=== PATIENT | male | born 1965 | race Caucasian/White ===

== ENCOUNTER 2017-03-10 17:57 | Inpatient (IN) | payer OTHER ==
[2017-03-10 18:26] LABS: Glucose,Whole Blood 90 mg/dL (75-99)
[2017-03-10 18:40] LABS: Basophils % (A) 1 %; CH 28.9; Eosinophils # (A) 0.1 k/uL (0-0.7); Eosinophils % (A) 2 %; HDW 3.13; HGB 14.7 gm/dL (13.0-17.5); Luc # (Auto) 0.17; Luc % (Auto) 4; Lymphocytes # (A) 1.7 k/uL (1.0-4.8); Lymphocytes % (A) 38 %; MCH 28.7 pg (25.0-35.0); MCHC 33.5 g/dL (31.0-37.0); MCV 85.7 fL (80.0-100.0); Mean Platelet Volume 6.6; Monocytes # (A) 0.5 k/uL (0-1.0); Monocytes % (A) 12 %; Neutrophils % (A) 44 %; RBC 5.13 m/uL (4.30-5.90); RDW 15.5 % (11.5-15.5); WBC 4.5 k/uL (3.8-10.6); WBC (Perox) 4.48
[2017-03-10 18:48] LABS: ALT 29 U/L (21-72); AST 27 U/L (17-59); Alkaline Phosphatase 67 U/L (38-126); Anion Gap 13 mmol/L; Blood Urea Nitrogen 11 mg/dL (9-20); Calcium 9.6 mg/dL (8.4-10.2); Carbon Dioxide 23 mmol/L (22-30); Chloride 107 mmol/L (98-107); Glucose 104 mg/dL (74-99); Magnesium 2.1 mg/dL (1.6-2.3); Non-African American GFR(MDRD) >60 (>60 ml/min/1.73 sqM); Sodium 143 mmol/L (137-145); Total Bilirubin 2.7 mg/dL (0.2-1.3); Total Protein 8.7 g/dL (6.3-8.2)
[2017-03-10 19:03] LABS: Creatine Kinase 209 U/L (55-170); Prothrombin Time 10.1 sec (9.0-12.0)
[2017-03-10] MEDS ORDERED: RX INFO: IV CONTRAST WAS GIVEN 1 EACH MISC MISCELLANE PRN (19:05)
--- NOTE | 2017-03-10 19:09 | CT ---
EXAMINATION TYPE: CT brain wo con DATE OF EXAM: 03/10/2017 6:43 PM COMPARISON: Prior CT brain 30 Mar 2016 HISTORY: Pt states of right side facial numbness. CT DLP: 946.1 mGycm Automated exposure control for dose reduction was used. FINDINGS: There is no acute intracranial hemorrhage, mass effect, or midline shift identified. The ventricles and sulci are within normal limits in size. The globes are intact and the visualized sinuses are rem arkable for air-fluid level in the left maxillary sinus, correlate for sinusitis. Irregularity at the posterior sinus wall on the left is chronic. IMPRESSION: No acute intracranial hemorrhage, mass effect, or midline shift is seen.
[2017-03-10 19:17] LABS: Troponin I <0.012 ng/mL (0.000-0.034)
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
[2017-03-10 19:23] LABS: Partial Thromboplastin Time 21.4 sec (22.0-30.0)
[2017-03-10 19:25] LABS: Creatine Kinase MB 2.9 ng/mL (0.0-2.4)
[2017-03-10] MEDS ORDERED: ASPIRIN 325 MG TAB PO STA (19:44)
[2017-03-10] MEDS ORDERED: predniSONE 20 MG TAB PO STA (19:46)
--- NOTE | 2017-03-10 20:11 | CT ---
CT angiogram of the head and neck HISTORY: Right-sided facial numbness Helical acquisition from the lung apices through the skull following 65 cc intravenous Omnipaque 350. Three-dimensional reconstructions performed on an alternate workstation. Transverse aorta, left and right common carotid, innominate, left and right subclavian arteries are p atent. Vertebral arteries are patent. Internal and external carotid arteries are patent. No significa nt stenosis. Vertebrobasilar system is patent. Air-fluid level noted in the left maxillary sinus. No evident hemorrhage or hydrocephalus. There is no evident aneurysm or vascular malformation. No filling defect or significant stenosis. IMPRESSION: Sinus disease. No significant stenosis of the proximal internal carotid arteries, no evid ent aneurysm.
[2017-03-10] MEDS: valACYclovir 500 MG TAB PO STA ×2 (20:33→20:34)
[2017-03-10] MEDS: ATORVASTATIN 80 MG TAB PO SCH (23:17)
[2017-03-11 00:59] VITALS: RESP 16
--- NOTE | 2017-03-11 09:19 | US ---
EXAMINATION TYPE: US carotid duplex BILAT DATE OF EXAM: 03/11/2017 8:39 AM COMPARISON: NONE CLINICAL HISTORY: Stenosis. rt facial droop EXAM MEASUREMENTS: RIGHT: Peak Systolic Velocity (PSV) cm/sec ----- Right CCA: 170.7 ----- Right ICA: 164.8 ----- Right ECA: 99.2 ICA/CCA ratio: 1.1 RIGHT: End Diastole cm/sec ----- Right CCA: 15.0 ----- Right ICA: 18.9 ----- Right ECA: 12.3 LEFT: Peak Systolic Velocity (PSV) cm/sec ----- Left CCA: 100.9 ----- Left ICA: 75.0 ----- Left ECA: 122.6 ICA/CCA ratio: 0.7 LEFT: End Diastole cm/sec ----- Left CCA: 11.2 ----- Left ICA: 23.5 ----- Left ECA: 11.1 VERTEBRALS (direction of flow): Right Vertebral: Antegrade Left Vertebral: Antegrade Elevated right prox CCA, mid CCA, and ECA. No significant stenosis. Right thicken CCA wall. Plaque seen in right bulb. IMPRESSION: 1. Atherosclerotic changes with no significant hemodynamic stenosis bilaterally.
[2017-03-11] MEDS: predniSONE 20 MG TAB PO SCH (09:58)
[2017-03-11] MEDS: ASPIRIN 325 MG TAB PO SCH (09:58)
[2017-03-11] MEDS: SODIUM CHLORIDE 0.9% 1,000 ML IV SCH ×3 (09:58→17:25)
[2017-03-11] MEDS: valACYclovir 500 MG TAB PO SCH ×2 (09:59→20:04)
--- NOTE | 2017-03-11 11:41 | ECHOF ---
Referral Reason:Thrombus MEASUREMENTS -------- HEIGHT: 182.9 cm WEIGHT: 96.2 kg BP: 133/66 RVIDd: 2.3 cm (< 3.3) IVSd: 1.0 cm (0.6 - 1.1) LVIDd: 5.4 cm (3.9 - 5.3) LVPWd: 1.3 cm (0.6 - 1.1) IVSs: 1.2 cm LVIDs: 3.7 cm LVPWs: 1.4 cm LA Diam: 3.7 cm (2.7 - 3.8) Ao Diam: 2.4 cm (2.0 - 3.7) AV Cusp: 1.6 cm (1.5 - 2.6) LA Diam: 4.1 cm (2.7 - 3.8) MV EXCURSION: 22.213 mm (> 18.000) MV EF SLOPE: 124 mm/s (70 - 150) EPSS: 0.3 cm MV E Uriah: 0.72 m/s MV DecT: 254 ms MV A Uriah: 0.95 m/s MV E/A Ratio: 0.76 RAP: 5.00 mmHg RVSP: 33.05 mmHg FINDINGS -------- Sinus rhythm. This was a technically adequate study. There is borderline concentric left ventricular hypertrophy. Overall left ventricular systolic function is normal with, an EF between 55 - 60 %. The right ventricle is normal in size. The left atrial size is normal. The right atrial size is normal. The aortic valve is trileaflet, and appears structurally normal. No aortic stenosis or regurgitation. Mild mitral annular calcification present. Mild mitral regurgitation is present. Mild tricuspid regurgitation present. There is no evidence of pulmonary hypertension. The right ventricular systolic pressure, as measured by Doppler, is 33.05mmHg. There is no pulmonic regurgitation present. The aortic root size is normal. There is no pericardial effusion. CONCLUSIONS -------- 1. There is borderline concentric left ventricular hypertrophy. 2. Overall left ventricular systolic function is normal with, an EF between 55 - 60 %. 3. Mild mitral annular calcification present. 4. Mild mitral regurgitation is present. 5. Mild tricuspid regurgitation present. 6. There is no evidence of pulmonary hypertension. 7. The right ventricular systolic pressure, as measured by Doppler, is 33.05mmHg. GREEN PIPEFITTER: Julianna Riggins RDCS
--- NOTE | 2017-03-11 14:36 | MR ---
EXAMINATION TYPE: MR brain wo/w con DATE OF EXAM: 03/11/2017 2:22 PM COMPARISON: CT 03/10/2017 HISTORY: 51-year-old male with CVA, right facial droop TECHNIQUE: Multiplanar, multisequence images of the brain and brainstem were acquired before and aft er administration of 19 mL IV MultiHance. Diffusion weighted imaging is performed. FINDINGS: No evidence for acute infarction, hemorrhage, mass, mass effect, midline shift, herniation, effacemen t of basal cisterns, or extra-axial fluid collection. The ventricles and sulci are age-appropriate. Major intracranial flow voids are intact. T2/FLAIR weighted sequences show no significant white matter signal abnormality. A tiny 4 mm focus in the subcortical posterior left frontal white matter, axial image 25 is suspected to represent a vess el. Midline structures demonstrate normal morphology. Minimal 2.7 mm of right-sided cerebellar tonsillar herniation compatible with benign cerebellar tonsillar ectopia. Otherwise, the craniocervical junctio n is normal. Post contrast images demonstrate no evidence of pathologic enhancement. Dural venous sinuses are pat ent. Redemonstrated mild mucosal thickening in the maxillary sinuses with small air-fluid level in the lef t maxillary sinus. The globes are intact. IMPRESSION: 1. No acute intracranial abnormality or enhancing intracranial lesions seen. 2. Correlate for acute left maxillary sinusitis.
[2017-03-11] MEDS: TASIGNA 150 MG PO SCH (17:26)
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
[2017-03-11] MEDS ORDERED: ARTIFICIAL TEARS-HYPROMELLOSE DROPS 15 ML BTL RIGHT EYE PRN (18:45)
--- NOTE | 2017-03-11 18:47 | P.CNNES ---
History of Present Illness Consult date: 03/11/17 History of Present Illness: The patient is a 51-year-old white male who reports that on Saturday morning he woke up with tearing of the right eye and right facial droop. By Saturday at noon it felt as if his right face was more droopy. Urgency room with this symptom. Never had right facial droop in the past. He denied any numbness or weakness in his arms or legs. He denied any visual changes or dizziness or headache. He reports that 5 years ago he passed out and was told he had a mini stroke. He reports however that the workup at that time was negative. He was placed on aspirin which she did stop recently because of a diagnosis of leukemia. Patient reports that he was sleeping next to a fan on Saturday evening. Also reports to having excessive stress recently. He came to the emergency room with this complaint and was admitted to the hospital with possible stroke. He had a carotid ultrasound and echocardiogram which were unremarkable. An MRI which was normal except for some left sinus disease. Denies any hearing loss or change in taste. Denies any eye pain or visual changes. Review of Systems Constitutional: Denies chills, Denies fever Eyes: denies blurred vision, denies pain Ears, nose, mouth and throat: Denies headache, Denies sore throat Cardiovascular: Denies chest pain, Denies shortness of breath Respiratory: Denies cough Gastrointestinal: Denies abdominal pain, Denies diarrhea, Denies nausea, Denies vomiting Musculoskeletal: Denies myalgias Integumentary: Denies pruritus, Denies rash Psychiatric: Denies anxiety, Denies depression Endocrine: Denies fatigue, Denies weight change Past Medical History Past Medical History: CVA/TIA, Hypertension, Pneumonia Additional Past Medical History / Comment(s): GOUT,"HAS A PEICE OF IRON IN ONE OF HIS EYES, NOT SURE BUT THINKS IT MAY BE HIS LT EYE", MURMUR. STATED PT HAD" COW POX", History of Any Multi-Drug Resistant Organisms: None Reported Past Surgical History: Hernia Repair, Orthopedic Surgery Additional Past Surgical History / Comment(s): RT KNEE ARTHROSCOPY AND CLEANED OUT KNEE,, RT SHOULDER HAS PIN IN IT. Past Anesthesia/Blood Transfusion Reactions: No Reported Reaction Past Psychological History: No Psychological Hx Reported Smoking Status: Former smoker Past Alcohol Use History: Rare Additional Past Alcohol Use History / Comment(s): CHEW TOBACCO Past Drug Use History: None Reported - Past Family History Mother Family Medical History: Hypertension Father Additional Family Medical History / Comment(s): DAD IS . HAD HX ULCERS Medications and Allergies Home Medications Medication Instructions Recorded Confirmed Type Ibuprofen/Pseudoephedrine HCl 1 tab PO DAILY PRN 03/10/17 03/10/17 History [Advil Cold & Sinus Caplet] Lidocaine 5% Patch [Lidoderm] 1 patch TOPICAL Q12H PRN 03/10/17 03/10/17 History Nilotinib HCl [Tasigna] 300 mg PO BID 03/10/17 03/10/17 History Allergies Allergy/AdvReac Type Severity Reaction Status Date / Time No Known Allergies Allergy Verified 03/10/17 19:05 Physical Examination - Vital Signs Vital Signs: Vital Signs Temp Pulse Resp BP Pulse Ox 03/11/17 11:05 96.8 F L 61 16 138/65 98 03/11/17 09:25 97.3 F L 70 16 144/69 95 03/11/17 06:00 97.6 F 49 L 16 133/66 99 03/11/17 04:00 97.5 F L 49 L 16 129/60 97 03/11/17 02:00 98.4 F 52 L 16 135/82 97 03/11/17 00:00 98.3 F 57 L 16 143/82 97 03/10/17 23:00 98.2 F 58 L 16 144/83 97 03/10/17 22:00 97.0 F L 58 L 18 146/93 99 03/10/17 21:29 97.3 F L 49 L 18 151/81 100 03/10/17 21:00 97.3 F L 49 L 18 151/81 100 Intake and Output 03/11/17 03/11/17 03/11/17 06:59 14:59 22:59 Intake Total 800 520 Output Total 900 900 Balance -100 -380 Intake: IV 800 Sodium Chloride 0.9% 1, 800 000 ml @ 100 mls/hr IV . Q10H ALLEN Rx#:[id number] Oral 520 Output: Urine 900 900 Other: # Voids 1 2 Weight 96.5 kg - Constitutional General appearance: average body habitus - EENT EENT: PERRL, hearing intact, vision intact - Cardiovascular Cardiovascular: regular rate - Integumentary Integumentary: normal - Neurologic Cranial nerve examination: PERRL, EOMI, VFF, face symmetric (Right lower motor neuron facial paralysis inability to completely close right eyelid), tongue midline Speech examination: intact Sensorimotor examination: other (Reduced light touch on right side of face by 50 %) Detailed motor examination: grossly full strength in all extremities Reflex and gait examination: intact - Psychiatric Psychiatric: mood/affect appropriate Results - Laboratory Findings CBC and BMP: 03/10/17 18:20 03/10/17 18:20 Assessment and Plan (1) Right-sided Neri's palsy Status: Acute Code(s): G51.0 - NERI'S PALSY Plan: The patient has clinical evidence of a right lower motor neuron facial paralysis. Recommend every 4 hours lubrication to right eye with artificial tears. Been patch for right eye during sleep. Recommend OT to evaluate for possible left stimulation for right facial nerve and facial exercises. The patient did have a stroke workup including carotid ultrasound and echocardiogram which were unremarkable. He could be on aspirin periodically as tolerated given his past history of TIA. patient however reports that he has leukemia and was told not to take aspirin. Unclear whether patient would be able to take an antiviral agent at this time given his history of leukocytosis versus leukemia.
[2017-03-11] MEDS: ATORVASTATIN 80 MG TAB PO SCH (20:05)
[2017-03-12] MEDS: TASIGNA 150 MG PO SCH (06:00)
[2017-03-12] MEDS: SODIUM CHLORIDE 0.9% 1,000 ML IV SCH ×2 (06:47→08:51)
[2017-03-12] MEDS: ASPIRIN 325 MG TAB PO SCH (08:52)
[2017-03-12] MEDS: valACYclovir 500 MG TAB PO SCH (08:52)
[2017-03-12] MEDS: predniSONE 20 MG TAB PO SCH (08:52)
[2017-03-12 14:50] VITALS: BP 184/84; PULSE 59; TEMP 97.9
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
== END 2017-03-12 15:55 | disposition home or self-care (01) | DRG 74 ==
LOC: EC 17:57 → 6SEL 19:47 → 5MS5E 03-11 20:44
PROVIDERS: ADMIT Hospitalist; ATTEND Hospitalist
DX: G51.0 Bell's palsy (principal); C95.90 Leukemia, unspecified not having achieved remission; M10.9 Gout, unspecified; I10 Essential (primary) hypertension; F17.220 Nicotine dependence, chewing tobacco, uncomplicated; Z86.73 Personal history of transient ischemic attack (TIA), and cerebral infarction without residual deficits; Z87.828 Personal history of other (healed) physical injury and trauma; Z79.899 Other long term (current) drug therapy
CPT/HCPCS: 36415; 70450; 70496; 70498; 70553; 80053; 82550; 82553; 83735; 84100; 84484; 85025; 85610; 85730; 93005; 93306; 93880; 94760; 99285

== ENCOUNTER → 2019-06-22 | Outpatient (CLI) | payer OTHER ==
--- NOTE | 2019-06-23 09:33 | ECHOF ---
Referral Reason:R01.1 Murmur MEASUREMENTS -------- HEIGHT: 182.9 cm WEIGHT: 102.1 kg BP: RVIDd: 3.5 cm (< 3.3) IVSd: 1.4 cm (0.6 - 1.1) LVIDd: 4.8 cm (3.9 - 5.3) LVPWd: 1.1 cm (0.6 - 1.1) IVSs: 1.9 cm LVIDs: 3.4 cm LVPWs: 1.5 cm LAESV Index (A-L): 29.24 ml/m Ao Diam: 2.7 cm (2.0 - 3.7) AV Cusp: 1.9 cm (1.5 - 2.6) LA Diam: 4.5 cm (2.7 - 3.8) MV EXCURSION: 17.701 mm (> 18.000) MV EF SLOPE: 119 mm/s (70 - 150) EPSS: 1.4 cm MV E Uriah: 0.66 m/s MV DecT: 200 ms MV A Uriah: 0.96 m/s MV E/A Ratio: 0.69 AV maxP.10 mmHg AV meanP.93 mmHg RAP: 5.00 mmHg RVSP: 39.27 mmHg FINDINGS -------- Sinus rhythm. This was a technically adequate study. The left ventricular size is normal. There is mild concentric left ventricular hypertrophy. Overa ll left ventricular systolic function is normal with, an EF between 55 - 60 %. The diastolic fillin g pattern is normal for the age of the patient 8.47. The right ventricle is mildly enlarged. LA is midly dilated 29-33ml/m2. The right atrial size is normal. Interatrial and interventricular septum intact. The aortic valve is trileaflet and appears structurally normal. There is no evidence of aortic regu rgitation. There is no evidence of aortic stenosis. Peak/mean gradient across the Aortic Valve is 18.10mmHg / 8.93mmHg. There is trace mitral regurgitation. Mild tricuspid regurgitation present. There is mild pulmonary hypertension. The right ventricular systolic pressure, as measured by Doppler, is 39.27mmHg. There is no pulmonic regurgitation present. The aortic root size is normal. IVC Not well visulized. There is no pericardial effusion. CONCLUSIONS -------- 1. Sinus rhythm. 2. This was a technically adequate study. 3. The left ventricular size is normal. 4. There is mild concentric left ventricular hypertrophy. 5. Overall left ventricular systolic function is normal with, an EF between 55 - 60 %. 6. The diastolic filling pattern is normal for the age of the patient 8.47 7. The right ventricle is mildly enlarged. 8. LA is midly dilated 29-33ml/m2. 9. The right atrial size is normal. 10. Interatrial and interventricular septum intact. 11. The aortic valve is trileaflet and appears structurally normal. 12. There is no evidence of aortic regurgitation. 13. There is no evidence of aortic stenosis. 14. Peak/mean gradient across the Aortic Valve is 18.10mmHg / 8.93mmHg. 15. There is trace mitral regurgitation. 16. Mild tricuspid regurgitation present. 17. There is mild pulmonary hypertension. 18. The right ventricular systolic pressure, as measured by Doppler, is 39.27mmHg. 19. There is no pulmonic regurgitation present. 20. The aortic root size is normal. 21. IVC Not well visulized. 22. There is no pericardial effusion. STRATEGIC DEBRIEFING OFFICER: Beverley Dutton RD
== END | disposition home or self-care (01) ==
LOC: RADECHMAIN 15:14
PROVIDERS: ATTEND Internal Medicine
DX: I07.1 Rheumatic tricuspid insufficiency (principal); I27.20 Pulmonary hypertension, unspecified
CPT/HCPCS: 93306

== ENCOUNTER 2020-03-11 08:18 | Inpatient (IN) | payer MEDICARE, OTHER ==
--- NOTE | 2020-03-11 08:50 | ED ---
General Adult HPI - General Chief complaint: Weakness Stated complaint: feet swelling Time Seen by Provider: 03/11/20 08:28 Source: patient, RN notes reviewed, old records reviewed Mode of arrival: wheelchair Limitations: physical limitation - History of Present Illness Initial comments: 54-year-old male patient with past history of prior CVA, HTN. gout present ED for chief complaint of bilateral lower extremity pain and swelling. Reports has been ongoing for approximately 2 weeks. Patient reports he has been sedentary since the start of quarantine. Patient does also report that he has a history of CML and completed treatments approximately 6 months ago. Denies any chest pain or shortness of breath. Patient reports he has not taken his blood p ressure medication the last few days. Systemic: Pt denies fatigue, fever/chills, rash. Pt denies weakness, night sweats, weight loss. Neuro: Pt denies headache, visual disturbances, syncope or pre-syncope. HEENT: Pt denies ocular discharge or irritation, otalgia, rhinorrhea, pharyngitis or notable lymphadenopathy. Cardiopulmonary: Pt denies chest pain, SOB, heart palpitations, dyspnea on exertion. Abdominal/GI: Pt denies abdominal pain, n/v/d. : Pt denies dysuria, burning w/ urination, frequency/urgency. Denies new onset urinary or bowel incontinence. MSK: Pt denies myalgia, loss of strength or function in extremities. Neuro: Pt denies new onset weakness, paresthesias. - Related Data Home Medications Medication Instructions Recorded Confirmed Acetaminophen [Tylenol] 650 mg PO Q8H PRN 03/11/20 03/11/20 Atorvastatin Calcium [Lipitor] 80 mg PO DAILY 03/11/20 03/11/20 Cephalexin [Keflex] 500 mg PO Q8H 03/11/20 03/11/20 Losartan Potassium [Cozaar] 50 mg PO DAILY 03/11/20 03/11/20 Naproxen Sodium [Aleve] 440 mg PO BID PRN 03/11/20 03/11/20 Allergies Allergy/AdvReac Type Severity Reaction Status Date / Time cefazolin [From Ancef] Allergy Unknown Verified 03/11/20 10:12 sulfamethoxazole Allergy Rash/Hives Verified 03/11/20 10:12 [From Bactrim] trimethoprim [From Bactrim] Allergy Rash/Hives Verified 03/11/20 10:12 Review of Systems ROS Statement: Those systems with pertinent positive or pertinent negative responses have been documented in the HPI. ROS Other: All systems not noted in ROS Statement are negative. Past Medical History Past Medical History: CVA/TIA, Hypertension, Pneumonia Additional Past Medical History / Comment(s): GOUT,"HAS A PEICE OF IRON IN ONE OF HIS EYES, NOT SURE BUT THINKS IT MAY BE HIS LT EYE", MURMUR. STATED PT HAD" COW POX", Leukemia History of Any Multi-Drug Resistant Organisms: None Reported Past Surgical History: Hernia Repair, Orthopedic Surgery Additional Past Surgical History / Comment(s): RT KNEE ARTHROSCOPY AND CLEANED OUT KNEE,, RT SHOULDER HAS PIN IN IT. Past Anesthesia/Blood Transfusion Reactions: No Reported Reaction Past Psychological History: No Psychological Hx Reported Smoking Status: Former smoker Past Alcohol Use History: Rare Past Drug Use History: None Reported - Past Family History Mother Family Medical History: Hypertension Father Additional Family Medical History / Comment(s): DAD IS . HAD HX ULCERS General Exam - General Exam Comments Initial Comments: Constitutional: NAD, AOX3, Pt has pleasant affect. HEENT: NC/AT, trachea midline, neck supple, no lymphadenopathy. Posterior pharynx non erythematous, without exudates. External ears appear normal, without discharge. Mucous membranes moist. Eyes PERRLA, EOM intact. There is no scleral icterus. No pallor noted. Cardiopulmonary: RRR, no murmurs, rubs or gallops, no JVD noted. Lungs CTAB in anterior and posterior crane. Abdominal exam: Abdomen soft and non-distended. Abdomen non-tender to palpation in all 4 quadrants. Bowel sounds active in LLQ. No hepatosplenomegaly. No ecchymosis Neuro: CN II-XII intact. No nuchal rigidity. No raccon eyes, no juarez sign, no hemotympanum. No cervical spinal tenderness. MSK: Posterior peripheral edema noted lower extremities bilaterally. No skin changes. No posterior calf tenderness bilaterally, homans sign negative bilaterally. Mild amount of posterior knee tenderness bilaterally. Worse on left side. Mild suprapatellar effusion noted on left knee. No external skin changes. Mild tenderness. Posterior tibialis and radial pulse +2 bilaterally. Sensation intact in upper and lower extremities. Full activeROM in upper extremities, 5/5 stregnth. ROM of LLE slightly limited secondary to knee pain. Full active ROM of RLE. Limitations: physical limitation Course Vital Signs 03/11/20 03/11/20 03/11/20 08:19 09:05 09:23 Temperature 98.4 F Pulse Rate 82 78 67 Respiratory 18 18 18 Rate Blood Pressure 234/113 212/111 203/99 O2 Sat by Pulse 100 98 Oximetry 03/11/20 03/11/20 03/11/20 09:46 10:05 10:16 Temperature Pulse Rate 64 62 70 Respiratory 18 18 18 Rate Blood Pressure 203/106 198/98 200/103 O2 Sat by Pulse 97 97 Oximetry 03/11/20 03/11/20 10:33 10:51 Temperature Pulse Rate 67 69 Respiratory 18 18 Rate Blood Pressure 197/102 197/102 O2 Sat by Pulse 98 97 Oximetry Medical Decision Making - Medical Decision Making 54-year-old male patient with past history of prior CVA, HTN. gout present ED for chief complaint of bilateral lower extremity pain and swelling. Reports has been ongoing for approximately 2 weeks. Patient reports he has been sedentary since the start of quarantine. Patient does also report that he has a history of CML and completed treatments approximately 6 months ago. Denies any chest pain or shortness of breath. Patient reports he has not taken his blood pressure medication the last few days. Patient vital signs displayed hypertension. Initial blood pressure 234/113. Patient was administered analgesia for bilateral leg pain as well as antihypertensive. At time of admission patient's blood pressure is 200/103. Physical exam displayed posterior peripheral edema bilaterally. Neurovascularly intact. Posterior knees are mildly tender to palpation bilaterally. Worse on left side. Laboratory investigations are unimpressive. EKG nonischemic. CXR displayed no acute cardiopulmonary process. Venous doppler displayed bakers cyst left sided. Patient will be admitted for hypertensive urgency, possible right-sided heart failure. Case discussed with Dr. Welch. - Lab Data Result diagrams: 03/11/20 08:59 03/11/20 08:59 Lab Results 03/11/20 03/11/20 03/11/20 Range/Units 08:59 08:59 08:59 WBC 10.5 (3.8-10.6) k/uL RBC 4.92 (4.30-5.90) m/uL Hgb 13.8 (13.0-17.5) gm/dL Hct 42.7 (39.0-53.0) % MCV 86.9 (80.0-100.0) fL MCH 28.1 (25.0-35.0) pg MCHC 32.3 (31.0-37.0) g/dL RDW 14.3 (11.5-15.5) % Plt Count 336 (150-450) k/uL Neutrophils % 78 % Lymphocytes % 14 % Monocytes % 5 % Eosinophils % 1 % Basophils % 1 % Neutrophils # 8.2 H (1.3-7.7) k/uL Lymphocytes # 1.5 (1.0-4.8) k/uL Monocytes # 0.6 (0-1.0) k/uL Eosinophils # 0.1 (0-0.7) k/uL Basophils # 0.1 (0-0.2) k/uL Sodium 139 (137-145) mmol/L Potassium 4.8 (3.5-5.1) mmol/L Chloride 101 (98-107) mmol/L Carbon Dioxide 25 (22-30) mmol/L Anion Gap 13 mmol/L BUN 16 (9-20) mg/dL Creatinine 0.96 (0.66-1.25) mg/dL Est GFR (CKD-EPI)AfAm >90 (>60 ml/min/1.73 sqM) Est GFR (CKD-EPI)NonAf >90 (>60 ml/min/1.73 sqM) Glucose 166 H (74-99) mg/dL Calcium 9.8 (8.4-10.2) mg/dL Phosphorus 3.8 (2.5-4.5) mg/dL Magnesium 2.0 (1.6-2.3) mg/dL Total Bilirubin 1.3 (0.2-1.3) mg/dL AST 22 (17-59) U/L ALT 11 (4-49) U/L Alkaline Phosphatase 95 (38-126) U/L Troponin I <0.012 (0.000-0.034) ng/mL NT-Pro-B Natriuret Pep pg/mL Total Protein 8.3 H (6.3-8.2) g/dL Albumin 4.4 (3.5-5.0) g/dL 03/11/20 Range/Units 08:59 WBC (3.8-10.6) k/uL RBC (4.30-5.90) m/uL Hgb (13.0-17.5) gm/dL Hct (39.0-53.0) % MCV (80.0-100.0) fL MCH (25.0-35.0) pg MCHC (31.0-37.0) g/dL RDW (11.5-15.5) % Plt Count (150-450) k/uL Neutrophils % % Lymphocytes % % Monocytes % % Eosinophils % % Basophils % % Neutrophils # (1.3-7.7) k/uL Lymphocytes # (1.0-4.8) k/uL Monocytes # (0-1.0) k/uL Eosinophils # (0-0.7) k/uL Basophils # (0-0.2) k/uL Sodium (137-145) mmol/L Potassium (3.5-5.1) mmol/L Chloride (98-107) mmol/L Carbon Dioxide (22-30) mmol/L Anion Gap mmol/L BUN (9-20) mg/dL Creatinine (0.66-1.25) mg/dL Est GFR (CKD-EPI)AfAm (>60 ml/min/1.73 sqM) Est GFR (CKD-EPI)NonAf (>60 ml/min/1.73 sqM) Glucose (74-99) mg/dL Calcium (8.4-10.2) mg/dL Phosphorus (2.5-4.5) mg/dL Magnesium (1.6-2.3) mg/dL Total Bilirubin (0.2-1.3) mg/dL AST (17-59) U/L ALT (4-49) U/L Alkaline Phosphatase (38-126) U/L Troponin I (0.000-0.034) ng/mL NT-Pro-B Natriuret Pep 200 pg/mL Total Protein (6.3-8.2) g/dL Albumin (3.5-5.0) g/dL - EKG Data -: EKG Interpreted by Me (and Dr. Welch ) EKG Comments: Ventricular rate 74, ND interval 150, QRS ED, QT/QTC 398/441. Normal sinus rhythm, normal EKG, no concern for acute ischemia. Disposition Clinical Impression: Leg edema, Hypertensive urgency, Knee pain Disposition: ADMITTED IP TO THIS HOSP Condition: Fair Is patient prescribed a controlled substance at d/c from ED?: No
[2020-03-11] MEDS ORDERED: LABETALOL 5 MG/ML VIAL MDV IVP STA (09:04)
[2020-03-11] MEDS ORDERED: MORPHINE SULFATE 4 MG/ML SYRINGE IV STA (09:05)
[2020-03-11] MEDS ORDERED: FUROSEMIDE 10 MG/ML 4 ML VIAL IV STA ×2 (09:16→09:52)
--- NOTE | 2020-03-11 09:22 | XR ---
EXAMINATION TYPE: XR chest 2V DATE OF EXAM: 03/11/2020 COMPARISON: 03/30/2016 HISTORY: 54-year-old male rule out fluid overload, bilateral feet swelling TECHNIQUE: PA and lateral views FINDINGS: The cardiomediastinal silhouette, aorta, and pulmonary vasculature are within normal limits. Lungs an d pleural spaces are clear. IMPRESSION: No acute cardiopulmonary process.
[2020-03-11 09:27] LABS: Basophils # (A) 0.1 k/uL (0-0.2); Basophils % (A) 1 %; Eosinophils # (A) 0.1 k/uL (0-0.7); Eosinophils % (A) 1 %; HCT 42.7 % (39.0-53.0); HGB 13.8 gm/dL (13.0-17.5); Lymphocytes # (A) 1.5 k/uL (1.0-4.8); Lymphocytes % (A) 14 %; MCH 28.1 pg (25.0-35.0); MCHC 32.3 g/dL (31.0-37.0); MCV 86.9 fL (80.0-100.0); Mean Platelet Volume 7.2; Monocytes # (A) 0.6 k/uL (0-1.0); Monocytes % (A) 5 %; Neutrophils # (A) 8.2 k/uL (1.3-7.7); Neutrophils % (A) 78 %; Platelet Count 336 k/uL (150-450); RBC 4.92 m/uL (4.30-5.90); RDW 14.3 % (11.5-15.5); WBC 10.5 k/uL (3.8-10.6)
[2020-03-11 09:49] LABS: ALT 11 U/L (4-49); AST 22 U/L (17-59); African American GFR (CKD) >90 (>60 ml/min/1.73 sqM); Albumin 4.4 g/dL (3.5-5.0); Alkaline Phosphatase 95 U/L (38-126); Anion Gap 13 mmol/L; Blood Urea Nitrogen 16 mg/dL (9-20); Calcium 9.8 mg/dL (8.4-10.2); Carbon Dioxide 25 mmol/L (22-30); Chloride 101 mmol/L (98-107); Glucose 166 mg/dL (74-99); Non-African American GFR(CKD) >90 (>60 ml/min/1.73 sqM); Phosphorus 3.8 mg/dL (2.5-4.5); Potassium 4.8 mmol/L (3.5-5.1); Sodium 139 mmol/L (137-145); Total Bilirubin 1.3 mg/dL (0.2-1.3); Total Protein 8.3 g/dL (6.3-8.2)
--- NOTE | 2020-03-11 09:55 | US ---
EXAMINATION TYPE: US venous doppler duplex LE DATE OF EXAM: 03/11/2020 9:49 AM COMPARISON: NONE CLINICAL HISTORY: 54-year-old male swelling pain . Bilateral leg edema and pain, worse on the left SIDE PERFORMED: bilateral TECHNIQUE: The lower extremity deep venous system is examined utilizing real time linear array sonog chet with graded compression, doppler sonography and color-flow sonography. FINDINGS: VESSELS IMAGED: External Iliac Vein (EIV) Common Femoral Vein Deep Femoral Vein Greater Saphenous Vein * Femoral Vein Popliteal Vein Small Saphenous Vein * Proximal Calf Veins (* superficial vessels) Right Leg: No evidence of DVT Left Leg: No evidence of DVT. Some poorly defined fluid areas in the left popliteal fossa measuring up to 3.3 cm long. IMPRESSION: 1. No evidence for DVT within the bilateral lower extremities imaged from the groin to the upper calv es. 2. Suspect small Powers cyst on the left measuring 3.3 cm.
[2020-03-11] MEDS ORDERED: hydrALAZINE HCL 20 MG/ML 1 ML VIAL IVP PRN (10:25)
[2020-03-11] MEDS ORDERED: NALOXONE 0.4 MG/ML 1 ML VIAL IV PRN (10:30)
[2020-03-11] MEDS: LOSARTAN 50 MG TAB PO SCH (10:48)
--- NOTE | 2020-03-11 11:17 | XR ---
EXAMINATION TYPE: XR knee 4V LT DATE OF EXAM: 03/11/2020 COMPARISON: NONE HISTORY: 54-year-old male with pain and swelling TECHNIQUE: 4 views FINDINGS: Anterior soft tissue swelling. Large knee joint effusion. No acute fracture, subluxation, dislocation seen. Patella appears situated along the trochlear groove. IMPRESSION: No acute osseous abnormality seen. However, there is an underlying large knee joint effusion. Recomme nd MRI to assess for internal derangement especially in the setting of injury.
[2020-03-11] MEDS: MORPHINE SULFATE 4 MG/ML SYRINGE IV PRN ×2 (13:04→22:20)
[2020-03-11] MEDS ORDERED: hydrALAZINE HCL 10 MG TAB PO STA (14:13)
--- NOTE | 2020-03-11 15:24 | P.CNOR ---
History of Present Illness - [facility] Consult date: 03/11/20 Consult reason: joint pain History of present illness: The patient is seen and examined today at bedside. He is a pleasant 54-year-old abid who has been having knee pain over the past 3 weeks. He says that he was injured 4 years ago and has had some pain in his back since that time he also extends having pain down his legs particularly when he is standing still. He developed swelling in his legs typically. He says that she weeks ago he noticed some increased swelling in his legs which has not gone away. He says that over the past 2 weeks she has been having pain in his left knee as well. He says he has had some pains as needed on and off in the past but this has been bothering over the past 2 weeks. He denies any specific injury or trauma. He says he does have history of some gout in his toe in the past. He does have a history of leukemia as well. Denies any fevers or chills. Denies any new injury to his knee. Denies any instability or giving way or locking. Review of Systems denies fevers chills or night sweats. He has been having swelling in his lower extremities for the past few weeks. He's been having some increased pain in his left knee. Denies any specific trauma or injury. Denies any prior problems in his left knee specifically. Past Medical History Past Medical History: CVA/TIA, Hypertension, Pneumonia Additional Past Medical History / Comment(s): GOUT,"HAS A PEICE OF IRON IN ONE OF HIS EYES, NOT SURE BUT THINKS IT MAY BE HIS LT EYE", MURMUR. STATED PT HAD" COW POX", Leukemia History of Any Multi-Drug Resistant Organisms: None Reported Past Surgical History: Hernia Repair, Orthopedic Surgery Additional Past Surgical History / Comment(s): RT KNEE ARTHROSCOPY AND CLEANED OUT KNEE,, RT SHOULDER HAS PIN IN IT. Past Anesthesia/Blood Transfusion Reactions: No Reported Reaction Past Psychological History: No Psychological Hx Reported Smoking Status: Former smoker Past Alcohol Use History: Rare Additional Past Alcohol Use History / Comment(s): CHEW TOBACCO Past Drug Use History: None Reported - Past Family History Mother Family Medical History: Hypertension Father Additional Family Medical History / Comment(s): DAD IS . HAD HX ULCERS Medications and Allergies Home Medications Medication Instructions Recorded Confirmed Type Acetaminophen [Tylenol] 650 mg PO Q8H PRN 03/11/20 03/11/20 History Atorvastatin Calcium [Lipitor] 80 mg PO DAILY 03/11/20 03/11/20 History Cephalexin [Keflex] 500 mg PO Q8H 03/11/20 03/11/20 History Cyclobenzaprine [Flexeril] 10 mg PO TID PRN #60 tab 03/11/20 Rx Losartan Potassium [Cozaar] 50 mg PO DAILY 03/11/20 03/11/20 History Naproxen Sodium [Aleve] 440 mg PO BID PRN 03/11/20 03/11/20 History Allergies Allergy/AdvReac Type Severity Reaction Status Date / Time cefazolin [From Ancef] Allergy Unknown Verified 03/11/20 10:12 sulfamethoxazole Allergy Rash/Hives Verified 03/11/20 10:12 [From Bactrim] trimethoprim [From Bactrim] Allergy Rash/Hives Verified 03/11/20 10:12 Physical Examination Osteopathic Statement: *. No significant issues noted on an osteopathic structural exam other than those noted in the History and Physical/Consult. - Knee left Appearance: other (at his left knee there is some diffuse swelling without specific effusion. There is some tenderness at the medial lateral joint line at his left knee. His thigh and calf soft nontender. There is no erythema. It is difficult to fully ascertain if there is significant effusion that knee. There is no obvious instability. He has some pain with flexion beyond 60. He has a slight extension lag about 10. He has full active dorsal flexion plantar flexion his ankle foot and toes. Sensory is intact. His hip is nontender to palpation range motion. His right lower extremity has some diffuse swelling as well. There is no point tenderness. Abdomen is soft nontender. Chest has good excursion deep inspiration and expiration) Results - Labs Labs: Abnormal Lab Results - Last 24 Hours (Table) 03/11/20 03/11/20 Range/Units 08:59 08:59 Neutrophils # 8.2 H (1.3-7.7) k/uL Glucose 166 H (74-99) mg/dL Total Protein 8.3 H (6.3-8.2) g/dL H & H 03/11/20 Range/Units 08:59 Hgb 13.8 (13.0-17.5) gm/dL Hct 42.7 (39.0-53.0) % Result Diagrams: 03/11/20 08:59 03/11/20 08:59 - Diagnostic results Knee x-ray: report reviewed, image reviewed (the left knee x-ray shows some soft tissue swelling. There is some is mild arthritic change from lateral compartment without any evidence of fracture.) Assessment and Plan Assessment: left knee strain Bilateral lower extremity chronic swelling History of leukemia Left knee swelling Plan: left knee strain Bilateral lower extremity chronic swelling History of leukemia Left knee swelling the patient has some diffuse strain in his left knee. He says that he may have been doing some limping recently and putting some extra weight and favoring his leg due to his swelling. He does not have any specific trauma however. With his history of gout I was uncertain as to whether or not he had significant effusion. At bedside I tried to aspirate his left knee but I was unable to get any fluid collection. There is no evidence of any pus. I was not able to get any fluid for sending. I think that he has some knee strain and diffuse swelling without specific internal derangement or injury at his knee. It is okay for him to weight-bear as tolerated on his bilateral lower extremities. I do not think that he needs emergent advanced imaging such as MRI but this may be helpful slightly down the line for further evaluation if his symptoms do not progress. He is asking for a muscle relaxer and I think that would be appropriate and I will or that for him. I think he should continue with his regular pain medication. he can be discharged from an orthopedic standpoint to follow up with us in approximately 1-2 weeks for recheck evaluation. I discussed this with him answers questions easily agreeable. Time with Patient: Greater than 30
--- NOTE | 2020-03-11 23:08 | P.HPIM ---
History of Present Illness H&P Date: 03/11/20 Chief Complaint: Bilateral leg swelling Patient is a 54-year-old male with a known history of CVA/TIA, hypertension, leukemia, history of back injury and chronic bilateral lower action to swelling came to ER with complaints of worsening swelling for the past 2 weeks. Patient says that he has been at home since the start of stay at home ordered due to coronary is pandemic. Patient says that he does have history of leukemia/CML and completed treatment approximately 6 months ago. Otherwise denied any complaints of chest pain or shortness of breath. No cough or sputum production. No fever no chills. No nausea vomiting or abdominal pain or diarrhea. Denied any dysuria or hematuria. Patient was found have elevated blood pressures with SBP greater than 220 mmHg on admission. Patient is also complaining of left knee pain and swelling on and off. X-ray of the knee showed no osseous abnormality seen. However there is an underlying large knee joint effusion. Recommend MRI to assess for internal derangement especially in the setting of injury. Chest x-ray showed no acute cardiopulmonary process. EKG showed normal sinus rhythm. BNP 200, albumin 4.4 Bilateral lower action to duplex scan is negative for DVT bilaterally. All other laboratory data within normal limits. Liver enzymes are not elevated. Review of Systems Constitutional: Patient denies any fever or chills . No generalized weakness or weight loss. Abdomen: Patient denied nausea vomiting and diarrhea and abdominal pain. Cardiovascular: Patient denies any chest pain or short of breath no palpitations. Bilateral leg swelling. Respiratory: patient denied any cough is from production. No shortness of breath Neurologic: Patient denied any numbness or tingling headache. Musculoskeletal: Patient denies any complaints of joint swelling or deformity. Skin: Negative Psychiatric: Negative Endocrine: No heat or cold intolerance. No recent weight gain. Genitourinary: No dysuria or hematuria. All other 14 point ROS negative except the above Past Medical History Past Medical History: CVA/TIA, Hypertension, Pneumonia Additional Past Medical History / Comment(s): GOUT,"HAS A PEICE OF IRON IN ONE OF HIS EYES, NOT SURE BUT THINKS IT MAY BE HIS LT EYE", MURMUR. STATED PT HAD" COW POX", Leukemia History of Any Multi-Drug Resistant Organisms: None Reported Past Surgical History: Hernia Repair, Orthopedic Surgery Additional Past Surgical History / Comment(s): RT KNEE ARTHROSCOPY AND CLEANED OUT KNEE,, RT SHOULDER HAS PIN IN IT. Past Anesthesia/Blood Transfusion Reactions: No Reported Reaction Past Psychological History: No Psychological Hx Reported Smoking Status: Former smoker Past Alcohol Use History: Rare Additional Past Alcohol Use History / Comment(s): CHEW TOBACCO Past Drug Use History: None Reported - Past Family History Mother Family Medical History: Hypertension Father Additional Family Medical History / Comment(s): DAD IS . HAD HX ULCERS Medications and Allergies Home Medications Medication Instructions Recorded Confirmed Type Acetaminophen [Tylenol] 650 mg PO Q8H PRN 03/11/20 03/11/20 History Atorvastatin Calcium [Lipitor] 80 mg PO DAILY 03/11/20 03/11/20 History Cephalexin [Keflex] 500 mg PO Q8H 03/11/20 03/11/20 History Cyclobenzaprine [Flexeril] 10 mg PO TID PRN #60 tab 03/11/20 Rx Losartan Potassium [Cozaar] 50 mg PO DAILY 03/11/20 03/11/20 History Naproxen Sodium [Aleve] 440 mg PO BID PRN 03/11/20 03/11/20 History Allergies Allergy/AdvReac Type Severity Reaction Status Date / Time cefazolin [From Ancef] Allergy Unknown Verified 03/11/20 10:12 sulfamethoxazole Allergy Rash/Hives Verified 03/11/20 10:12 [From Bactrim] trimethoprim [From Bactrim] Allergy Rash/Hives Verified 03/11/20 10:12 Physical Exam Vitals: Vital Signs Temp Pulse Pulse Resp BP BP Pulse Ox 03/11/20 12:19 98.2 F 68 15 192/82 98 03/11/20 11:41 68 18 183/102 99 03/11/20 10:51 69 18 197/102 97 03/11/20 10:33 67 18 197/102 98 03/11/20 10:16 70 18 200/103 03/11/20 10:05 62 18 198/98 97 03/11/20 09:46 64 18 203/106 97 03/11/20 09:23 67 18 203/99 03/11/20 09:05 78 18 212/111 98 03/11/20 08:19 98.4 F 82 18 234/113 100 Intake and Output 03/10/20 03/11/20 03/11/20 22:59 06:59 14:59 Other: Weight 104.326 kg PHYSICAL EXAMINATION: Patient is lying in the bed comfortably, no acute distress, awake alert and oriented.. HEENT: Normocephalic. Neck is supple. Pupils reactive. Nostrils clear. Oral cavity is moist. Ears reveal no drainage. Neck reveals no JVD, carotid bruits, or thyromegaly. CHEST EXAMINATION: Trachea is central. Symmetrical expansion. Lung crane clear to auscultation and percussion. CARDIAC: Normal S1, S2 with no gallops. No murmurs ABDOMEN: Soft. Bowel sounds normal. No organomegaly. No abdominal bruits. Extremities: Bilateral lower extremity 2+ edema. No clubbing or cyanosis Neurologically awake, alert, oriented x3 with well-coordinated movements. No focal deficits noted Skin: No rash or skin lesions. Psychiatric: Coperative. Nonsuicidal Musculoskeletal: No joint swelling or deformity. Normal range of motion. Results CBC & Chem 7: 03/11/20 08:59 03/11/20 08:59 Labs: Abnormal Lab Results - Last 24 Hours (Table) 03/11/20 03/11/20 Range/Units 08:59 08:59 Neutrophils # 8.2 H (1.3-7.7) k/uL Glucose 166 H (74-99) mg/dL Total Protein 8.3 H (6.3-8.2) g/dL Thrombosis Risk Factor Assmnt - DVT/VTE Prophylaxis DVT/VTE Prophylaxis: Pharmacologic Prophylaxis ordered - Choose All That Apply Any of the Below Risk Factors Present?: Yes Each Factor Represents 1 point: Age 41-60 years, Obesity (BMI >25) Other Risk Factors: No Other congenital or acquired thrombophilia - If yes, enter type in comment: No Thrombosis Risk Factor Assessment Total Risk Factor Score: 2 Thrombosis Risk Factor Assessment Level: Low Risk Assessment and Plan Assessment: Hypertensive urgency Bilateral lower extremity swelling. Duplex scan is negative. Albumin 4.4, Follow-up 2-D echocardiogram. Left knee pain and swelling on and off. Status post injury. X-ray showed no osseous abnormality. 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 History of CVA/TIA Hypertension History of leukemia status post chemotherapy completed 6 months ago Previous history of smoking DVT prophylaxis with heparin subcu Plan: Patient will be continued on IV Lasix 40 mg daily along with losartan. Monitor electrolytes. Orthopedic surgery was consulted due to left knee pain. X-ray showed no osseous abnormality. No significant effusion noted on physical exam. We will check d-dimer level and also 2-D echocardiogram. I's are not elevated. continue to monitor closely and further recommendations based on the clinical course. Time with Patient: Greater than 30
[2020-03-12] MEDS: HEPARIN SODIUM,PORCINE 5,000 UNIT/ML 1 ML VIAL SQ SCH ×3 (00:13→16:25)
[2020-03-12 07:57] LABS: Basophils # (A) 0.1 k/uL (0-0.2); Basophils % (A) 1 %; Eosinophils # (A) 0.1 k/uL (0-0.7); Eosinophils % (A) 1 %; HGB 13.4 gm/dL (13.0-17.5); Lymphocytes # (A) 2.7 k/uL (1.0-4.8); Lymphocytes % (A) 25 %; MCV 87.4 fL (80.0-100.0); Monocytes # (A) 0.7 k/uL (0-1.0); Monocytes % (A) 7 %; Neutrophils # (A) 7.2 k/uL (1.3-7.7); Neutrophils % (A) 66 %; Platelet Count 374 k/uL (150-450); RBC 4.81 m/uL (4.30-5.90); RDW 14.4 % (11.5-15.5)
[2020-03-12 08:05] LABS: Calcium 9.9 mg/dL (8.4-10.2); Potassium 4.7 mmol/L (3.5-5.1)
[2020-03-12] MEDS: LOSARTAN 50 MG TAB PO SCH ×2 (08:05→20:48)
[2020-03-12] MEDS: CYCLOBENZAPRINE 10 MG TAB PO PRN ×2 (08:13→20:47)
--- NOTE | 2020-03-12 08:41 | P.PN ---
Progress Note - Text Progress Note Date: 03/12/20 Patient is seen and examined today at bedside. The patient has some pain around his left knee. He feels like the swelling slightly diminished. Pain is somewhat global around the medial and lateral joint line and posteriorly. He was able to stand up but is very dependent on a walker for standing and for trying to utilize. With a severe limp at the left leg. He is not having specific numbness or tingling. There is no pain in his hip. Physical Exam Afebrile with stable vital signs. his pressure is slightly improved today Abdomen is soft nontender. Chest has good excursion deep and space expiration Extremities have not had neurologic change. there is some diffuse tenderness over his medial lateral compartment and posteriorly. There is no obvious effusion. There is no erythema. calves and thighs were soft nontender without evidence of DVT.there is diffuse swelling his bilateral ankles. Toes Assessment/Plan patient's blood pressure seems to be improving with Lasix. He said that he did have some increased weight and this is likely coming off the fluid. We will continue to increase the patient's mobilization with therapy. It is okay for him to weight-bear as tolerated. He may have some internal derangement at his left knee which may need advanced imaging with MRI after the hospital. We will continue pain control with oral or IV medications. is okay for patient to be discharged from orthopedic standpoint when he stable medicine. We can follow him up on an outpatient in 1-2 weeks.
[2020-03-12] MEDS ORDERED: FUROSEMIDE 10 MG/ML 4 ML VIAL IV SCH (09:00)
[2020-03-12 10:39] LABS: Cholesterol 156 mg/dL (<200); HDL Cholesterol 37 mg/dL (40-60); LDL Cholesterol,Calculated 101 mg/dL (0-99); Triglycerides 90 mg/dL (<150)
--- NOTE | 2020-03-12 15:35 | P.PN ---
Subjective This is Dr. BAILEY dictating a consult note on this patient Impression: Uncontrolled hypertension [place] effusion left knee with pain and tenderness especially in walking History of hypertension History of dyslipidemia History of CML Plan: Losartan 50 g twice daily Blood pressure control Patient may go home from a cardiac standpoint and I will see him as an outpatient 2-D echo was ordered History of present illness: Patient presented with bilateral lower extremity pain and swelling. Rice spoke to him he is pointing to his left knee which is clearly swollen and there is an effusion in this knee. There is no calf swelling no tenderness. At home he takes morphine opiates for this He has a history of CML He has a history of dyslipidemia and hypertension and is on atorvastatin and losartan Review of systems No fever chills or rigors No cough phlegm or expectoration No nausea vomiting or diarrhea No hematuria dysuria No muscular skeletal complaints No neurologic complaints No skin lesions On examination Vitals 167/81 mmHg pulse rate in the 60s to 90s afebrile Breath sounds are clear no rhonchi or crackles Normal heart sounds normal S1 normal S2 No murmurs or gallop or rub Abdomen soft nontender Review of data White count 11,000, hemoglobin 13.4, platelet count 374,000 D-dimer 0.6 Sodium 138, potassium 4.7, BUN 18 and creatinine 1.12 HDL 37 LDL 101 total cholesterol 156 and triglycerides 90 Objective - Vital Signs Vital signs: Vital Signs Temp 98.3 F 03/12/20 07:00 Pulse 63 03/12/20 07:00 Resp 18 03/12/20 07:00 BP 175/81 03/12/20 07:00 Pulse Ox 95 03/12/20 07:00 Intake & Output 03/11/20 03/12/20 03/12/20 18:59 06:59 18:59 Intake Total 400 Output Total 600 1800 Balance -600 400 -1800 Weight 104.326 kg Intake: Oral 400 Output: Urine 600 1800 Other: # Voids 1 1 - Labs CBC & Chem 7: 03/12/20 07:36 03/12/20 07:36 Labs: Abnormal Lab Results - Last 24 Hours (Table) 03/12/20 03/12/20 03/12/20 Range/Units 07:36 07:36 07:36 WBC 11.0 H (3.8-10.6) k/uL D-Dimer 0.61 H (<0.60) mg/L FEU Carbon Dioxide 34 H (22-30) mmol/L Glucose 127 H (74-99) mg/dL LDL Cholesterol, Calc (0-99) mg/dL HDL Cholesterol (40-60) mg/dL 03/12/20 Range/Units 07:36 WBC (3.8-10.6) k/uL D-Dimer (<0.60) mg/L FEU Carbon Dioxide (22-30) mmol/L Glucose (74-99) mg/dL LDL Cholesterol, Calc 101 H (0-99) mg/dL HDL Cholesterol 37 L (40-60) mg/dL
[2020-03-13] MEDS: HEPARIN SODIUM,PORCINE 5,000 UNIT/ML 1 ML VIAL SQ SCH ×4 (00:34→23:11)
[2020-03-13] MEDS: CYCLOBENZAPRINE 10 MG TAB PO PRN (08:13)
[2020-03-13] MEDS: LOSARTAN 50 MG TAB PO SCH ×2 (08:13→20:54)
[2020-03-13] MEDS: methylPREDNISolone 4 MG TAB TAPER PO SCH (09:37)
--- NOTE | 2020-03-13 12:40 | ECHOF ---
Referral Reason:Bilateral leg swelling MEASUREMENTS -------- HEIGHT: 175.3 cm WEIGHT: 104.3 kg BP: 167/81 IVSd: 1.4 cm (0.6 - 1.1) LVIDd: 5.3 cm (3.9 - 5.3) LVPWd: 1.5 cm (0.6 - 1.1) IVSs: 1.7 cm LVIDs: 3.3 cm LVPWs: 2.1 cm LA Diam: 3.1 cm (2.7 - 3.8) RVIDd: 2.8 cm (< 3.3) LAESV Index (A-L): 34.27 ml/m Ao Diam: 2.8 cm (2.0 - 3.7) AV Cusp: 2.0 cm (1.5 - 2.6) EPSS: 0.8 cm MV E Uriah: 0.70 m/s MV DecT: 239 ms MV A Uriah: 0.99 m/s MV E/A Ratio: 0.71 RAP: 5.00 mmHg RVSP: 23.14 mmHg MV EF SLOPE: 57.33 mm/s (70 - 150) MV EXCURSION: 20.95 mm (> 18.000) FINDINGS -------- Sinus rhythm. This was a technically adequate study. The left ventricular size is normal. There is moderate concentric left ventricular hypertrophy. O verall left ventricular systolic function is normal with, an EF between 55 - 60 %. The right ventricle is normal in size. The left atrial size is normal. The right atrium is normal in size. Interatrial and interventricular septum intact. The aortic valve is trileaflet and appears structurally normal. Mild mitral annular calcification present. Mild tricuspid regurgitation present. Right ventricular systolic pressure is normal at < 35 mmHg. Trace/mild (physiologic) pulmonic regurgitation. The aortic root size is normal. Normal inferior vena cava with normal inspiratory collapse consistent with estimated right atrial pre ssure of 5 mmHg. There is no pericardial effusion. CONCLUSIONS -------- 1. Sinus rhythm. 2. This was a technically adequate study. 3. The left ventricular size is normal. 4. There is moderate concentric left ventricular hypertrophy. 5. Overall left ventricular systolic function is normal with, an EF between 55 - 60 %. 6. The right ventricle is normal in size. 7. The left atrial size is normal. 8. The right atrium is normal in size. 9. Interatrial and interventricular septum intact. 10. The aortic valve is trileaflet and appears structurally normal. 11. Mild mitral annular calcification present. 12. Mild tricuspid regurgitation present. 13. Right ventricular systolic pressure is normal at < 35 mmHg. 14. Trace/mild (physiologic) pulmonic regurgitation. 15. The aortic root size is normal. 16. Normal inferior vena cava with normal inspiratory collapse consistent with estimated right atrial pressure of 5 mmHg. 17. There is no pericardial effusion. RECYCLING ATTENDANT: Kori Moya RDCS
--- NOTE | 2020-03-13 13:30 | P.PN ---
Subjective Progress Note Date: 03/13/20 Principal diagnosis: Left knee pain Patient is pleasant 54 year old man seen at bedside this morning where we are following him for severe left knee pain. It has not improved much over the past fgew days. He continues to have swelling at the knee and pain more anteriorly. He has pain with ROM and ambulating. He denies new complaints today including numbness, tingling, calf pain, fever, chills, chest pain, SOB or weakness Objective - Vital Signs Vital signs: Vital Signs Temp 98.4 F 03/13/20 07:00 Pulse 79 03/13/20 07:00 Resp 17 03/13/20 07:00 BP 165/85 03/13/20 07:00 Pulse Ox 96 03/13/20 07:00 Intake & Output 03/12/20 03/13/20 03/13/20 18:59 06:59 18:59 Intake Total 200 Output Total 1800 Balance -1800 200 Intake: Oral 200 Output: Urine 1800 Other: # Voids 1 1 - Exam Left knee shows no erythema or deformity on inspection. There is swelling at the suprapatellar area. There is tenderness at the patella tendon and tibia tubercle more so than joint line. It is not hot to touch. He lacks 15 degrees of extension and can flex to 80 degrees both limited to pain. The knee appears to be ligamentously stable. calf is SNT. pulses in feet are 2+ and less than 2 sec cap refill present - Constitutional General appearance: Present: no acute distress - Labs CBC & Chem 7: 03/12/20 07:36 03/12/20 07:36 Assessment and Plan (1) Knee pain Narrative/Plan: We will have him try utilizing a [place] Compressive hose to the left leg today along with elevating, rest and using ice pack 3x/day. We Will also add oral corticosteroids. We Will continue to monitor and make further recommendations as appropriate. Current Visit: Yes Status: Acute Priority: Medium Code(s): M25.569 - PAIN IN UNSPECIFIED KNEE SNOMED Code(s): 22288959 Time with Patient: Less than 30
[2020-03-13 16:52] VITALS: RESP 18
--- NOTE | 2020-03-13 17:59 | P.PN ---
Subjective Patient is being treated for the effusion left knee. He is an ice pack on and is awaiting a steroid shot His blood pressure still elevated History had increased losartan 50 mg twice daily He denies any chest discomfort dizziness lightheadedness or palpitations Blood pressure is still 170/84 mmHg Afebrile Positive the 70s Heart sounds Vu normal Extremities warm edema Abdomen soft 2-D echo shows moderate left ventricular hypertrophy with preserved LV systolic function Suggest Continue losartan 100 mg by mouth daily Further maximization of antihypertensive therapy as an outpatient Objective - Vital Signs Vital signs: Vital Signs Temp 98.4 F 03/13/20 15:00 Pulse 80 03/13/20 15:00 Resp 18 03/13/20 15:00 BP 167/86 03/13/20 15:00 Pulse Ox 94 L 03/13/20 15:00 Intake & Output 03/12/20 03/13/20 03/13/20 18:59 06:59 18:59 Intake Total 400 Output Total 1800 Balance -1800 400 Intake: Oral 400 Output: Urine 1800 Other: # Voids 1 1 3 - Labs CBC & Chem 7: 03/12/20 07:36 03/12/20 07:36
--- NOTE | 2020-03-14 01:26 | P.PN ---
Subjective Progress Note Date: 03/12/20 Principal diagnosis: Uncontrolled hypertension Left knee swelling and pain Patient is a 54-year-old male with a known history of CVA/TIA, hypertension, leukemia, history of back injury and chronic bilateral lower action to swelling came to ER with complaints of worsening swelling for the past 2 weeks. Patient says that he has been at home since the start of stay at home ordered due to coronary is pandemic. Patient says that he does have history of leukemia/CML and completed treatment approximately 6 months ago. Otherwise denied any complaints of chest pain or shortness of breath. No cough or sputum production. No fever no chills. No nausea vomiting or abdominal pain or diarrhea. Denied any dysuria or hematuria. Patient was found have elevated blood pressures with SBP greater than 220 mmHg on admission. Patient is also complaining of left knee pain and swelling on and off. X-ray of the knee showed no osseous abnormality seen. However there is an underlying large knee joint effusion. Recommend MRI to assess for internal derangement especially in the setting of injury. Chest x-ray showed no acute cardiopulmonary process. EKG showed normal sinus rhythm. BNP 200, albumin 4.4 Bilateral lower action to duplex scan is negative for DVT bilaterally. All other laboratory data within normal limits. Liver enzymes are not elevated. 03/12/2020 Patient denied any complaints of chest pain or shortness of breath today. Leg swelling is improving. Blood pressure is still elevated.. Patient was started on losartan 50 mg twice daily and Lasix has been discontinued. Orthopedic surgery is following due to left knee pain. Continue on pain management and conservative therapy. Cardiology is following. 2-D echocardiogram to be done. Current medications reviewed. Objective - Vital Signs Vital signs: Vital Signs Temp 98.3 F 03/12/20 19:00 Pulse 76 03/12/20 19:00 Resp 17 03/12/20 15:00 BP 170/84 03/12/20 19:00 Pulse Ox 95 03/12/20 19:00 Intake & Output 03/12/20 03/12/20 03/13/20 06:59 18:59 06:59 Intake Total 400 Output Total 1800 Balance 400 -1800 Intake: Oral 400 Output: Urine 1800 Other: # Voids 1 1 - Exam PHYSICAL EXAMINATION: Patient is lying in the bed comfortably, no acute distress, awake alert and oriented.. HEENT: Normocephalic. Neck is supple. Pupils reactive. Nostrils clear. Oral cavity is moist. Ears reveal no drainage. Neck reveals no JVD, carotid bruits, or thyromegaly. CHEST EXAMINATION: Trachea is central. Symmetrical expansion. Lung crane clear to auscultation and percussion. CARDIAC: Normal S1, S2 with no gallops. No murmurs ABDOMEN: Soft. Bowel sounds normal. No organomegaly. No abdominal bruits. Extremities: 2+ bilateral edema. No clubbing or cyanosis Neurologically awake, alert, oriented x3 with well-coordinated movements. No focal deficits noted Skin: No rash or skin lesions. Psychiatric: Coperative. Nonsuicidal Musculoskeletal: No joint swelling or deformity. Normal range of motion. Left knee swelling. No redness. - Labs CBC & Chem 7: 03/12/20 07:36 03/12/20 07:36 Labs: Abnormal Lab Results - Last 24 Hours (Table) 03/12/20 03/12/20 03/12/20 Range/Units 07:36 07:36 07:36 WBC 11.0 H (3.8-10.6) k/uL D-Dimer 0.61 H (<0.60) mg/L FEU Carbon Dioxide 34 H (22-30) mmol/L Glucose 127 H (74-99) mg/dL LDL Cholesterol, Calc (0-99) mg/dL HDL Cholesterol (40-60) mg/dL 03/12/20 Range/Units 07:36 WBC (3.8-10.6) k/uL D-Dimer (<0.60) mg/L FEU Carbon Dioxide (22-30) mmol/L Glucose (74-99) mg/dL LDL Cholesterol, Calc 101 H (0-99) mg/dL HDL Cholesterol 37 L (40-60) mg/dL Assessment and Plan Assessment: Hypertensive urgency Bilateral lower extremity swelling. Duplex scan is negative. Albumin 4.4, Follow-up 2-D echocardiogram. Improving now. Left knee pain and swelling on and off. Status post injury. X-ray showed no osseous abnormality. 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 History of CVA/TIA Hypertension History of leukemia status post chemotherapy completed 6 months ago Previous history of smoking DVT prophylaxis with heparin subcu Plan: Patient was continued on IV Lasix 40 mg daily. Increase losartan dose to 50 mg twice a day.. Monitor electrolytes. Orthopedic surgery was consulted due to left knee pain. X-ray showed no osseous abnormality. No significant effusion noted on physical exam. We will check d-dimer level and also 2-D echocardiogram. BNP is not elevated. continue to monitor closely and further recommendations based on the clinical course. Time with Patient: Greater than 30
--- NOTE | 2020-03-14 01:30 | P.PN ---
Subjective Progress Note Date: 03/13/20 Principal diagnosis: Uncontrolled hypertension Left knee swelling and pain Patient is a 54-year-old male with a known history of CVA/TIA, hypertension, leukemia, history of back injury and chronic bilateral lower action to swelling came to ER with complaints of worsening swelling for the past 2 weeks. Patient says that he has been at home since the start of stay at home ordered due to coronary is pandemic. Patient says that he does have history of leukemia/CML and completed treatment approximately 6 months ago. Otherwise denied any complaints of chest pain or shortness of breath. No cough or sputum production. No fever no chills. No nausea vomiting or abdominal pain or diarrhea. Denied any dysuria or hematuria. Patient was found have elevated blood pressures with SBP greater than 220 mmHg on admission. Patient is also complaining of left knee pain and swelling on and off. X-ray of the knee showed no osseous abnormality seen. However there is an underlying large knee joint effusion. Recommend MRI to assess for internal derangement especially in the setting of injury. Chest x-ray showed no acute cardiopulmonary process. EKG showed normal sinus rhythm. BNP 200, albumin 4.4 Bilateral lower action to duplex scan is negative for DVT bilaterally. All other laboratory data within normal limits. Liver enzymes are not elevated. 03/12/2020 Patient denied any complaints of chest pain or shortness of breath today. Leg swelling is improving. Blood pressure is still elevated.. Patient was started on losartan 50 mg twice daily and Lasix has been discontinued. Orthopedic surgery is following due to left knee pain. Continue on pain management and conservative therapy. Cardiology is following. 2-D echocardiogram to be done. 03/13/2020 Patient's bilateral leg swelling is much improved today. Otherwise patient still having left knee pain and tenderness and decreased range of motion. Feels slightly warm as well. Patient was seen by orthopedic surgery and recommended to start on steroids. Possible gout is also consideration. Uric acid level w ill be ordered. Otherwise blood pressure is improving with SBP and 160s this morning. Losartan changed to 100 mg daily. 2-D echocardiogram report is pending. Anticipate discharge in the next 1-2 days with clinical improvement. Current medications reviewed. Objective - Vital Signs Vital signs: Vital Signs Temp 98.4 F 03/13/20 15:00 Pulse 80 03/13/20 15:00 Resp 18 03/13/20 19:18 BP 167/86 03/13/20 15:00 Pulse Ox 94 L 03/13/20 15:00 Intake & Output 03/13/20 03/13/20 03/14/20 06:59 18:59 06:59 Intake Total 600 Balance 600 Intake: Oral 600 Other: Voiding Method Toilet Urinal # Voids 1 3 - Exam PHYSICAL EXAMINATION: Patient is lying in the bed comfortably, no acute distress, awake alert and oriented.. HEENT: Normocephalic. Neck is supple. Pupils reactive. Nostrils clear. Oral cavity is moist. Ears reveal no drainage. Neck reveals no JVD, carotid bruits, or thyromegaly. CHEST EXAMINATION: Trachea is central. Symmetrical expansion. Lung crane clear to auscultation and percussion. CARDIAC: Normal S1, S2 with no gallops. No murmurs ABDOMEN: Soft. Bowel sounds normal. No organomegaly. No abdominal bruits. Extremities: 2+ bilateral edema. No clubbing or cyanosis Neurologically awake, alert, oriented x3 with well-coordinated movements. No focal deficits noted Skin: No rash or skin lesions. Psychiatric: Coperative. Nonsuicidal Musculoskeletal: No joint swelling or deformity. Left knee swelling with decre ased range of motion and mild redness. - Labs CBC & Chem 7: 03/12/20 07:36 03/12/20 07:36 Assessment and Plan Assessment: Hypertensive urgency Bilateral lower extremity swelling. Duplex scan is negative. Albumin 4.4, Follow-up 2-D echocardiogram. Improving now. Left knee pain and swelling on and off. Status post injury. X-ray showed no osseous abnormality. Possible acute gouty arthritis. 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 History of CVA/TIA Hypertension History of leukemia status post chemotherapy completed 6 months ago Previous history of smoking DVT prophylaxis with heparin subcu Plan: Patient was continued on IV Lasix 40 mg daily. Increase losartan dose to 50 mg twice a day--1 mg daily... Monitor electrolytes. Orthopedic surgery was consulted due to left knee pain. X-ray showed no osseous abnormality. No significant effusion noted on physical exam. D-dimer level is 0.61. Ordered 2- D echocardiogram. BNP is not elevated. continue to monitor closely and further recommendations based on the clinical course. Time with Patient: Greater than 30
[2020-03-14 06:57] LABS: Basophils % (A) 0 %; Eosinophils # (A) 0.1 k/uL (0-0.7); Eosinophils % (A) 1 %; HCT 43.6 % (39.0-53.0); HGB 14.1 gm/dL (13.0-17.5); Lymphocytes # (A) 1.3 k/uL (1.0-4.8); Lymphocytes % (A) 8 %; MCHC 32.4 g/dL (31.0-37.0); MCV 86.3 fL (80.0-100.0); Mean Platelet Volume 7.2; Monocytes % (A) 5 %; Neutrophils # (A) 15.3 k/uL (1.3-7.7); Neutrophils % (A) 86 %; Platelet Count 466 k/uL (150-450); RBC 5.05 m/uL (4.30-5.90); RDW 14.3 % (11.5-15.5); WBC 17.8 k/uL (3.8-10.6)
[2020-03-14 07:17] LABS: Calcium 9.9 mg/dL (8.4-10.2); Potassium 4.4 mmol/L (3.5-5.1); Uric Acid 9.4 mg/dL (3.5-8.5)
[2020-03-14] MEDS: HEPARIN SODIUM,PORCINE 5,000 UNIT/ML 1 ML VIAL SQ SCH ×2 (08:00→15:35)
[2020-03-14] MEDS: methylPREDNISolone 4 MG TAB TAPER PO SCH (08:00)
[2020-03-14] MEDS: LOSARTAN 50 MG TAB PO SCH (08:00)
[2020-03-14 16:11] VITALS: BP 146/68; PULSE 68; TEMP 98.3
--- NOTE | 2020-03-14 17:14 | P.PN ---
Subjective Progress Note Date: 03/14/20 This patient is a 54-year-old male is being followed for left knee pain. The patient was initially evaluated by Dr. Duenas on 03/11/20, when an aspiration of the left knee was performed and aspiration did not yield any fluid. Oral steroids were added yesterday. The patient states he is experiencing significant improvement in his left knee pain since yesterday. He states he believes the swelling has decreased and he is experiencing a "100% improvement ", of his pain. He has not attempted ambulating today. The patient states he does have a history of gout. He last experienced an acute gout flare in his right first MTP joint about 10 years ago. He denies fevers, chills, nausea, vomiting. He has n o new complaints today. He is overall very happy with his progress. Vital signs stable. Objective - Vital Signs Vital signs: Vital Signs Temp 98.3 F 03/14/20 15:00 Pulse 68 03/14/20 15:00 Resp 18 03/14/20 15:00 BP 146/68 03/14/20 15:00 Pulse Ox 95 03/14/20 15:00 Intake & Output 03/13/20 03/14/20 03/14/20 18:59 06:59 18:59 Intake Total 600 450 Output Total 900 Balance 600 -450 Intake: Oral 600 450 Output: Urine 900 Other: Voiding Method Toilet Toilet Urinal Urinal # Voids 3 0 3 - Exam On examination, the patient is lying in bed in no apparent distress. He is alert and oriented 3. On inspection of the left lower extremity, there is MAX hose in place. Inspection of the left knee, the patient has a moderate joint effusion. There is no overlying erythema, warmth. There is mild pain on palpation of the tibial tubercle and patellar tendon. No significant pain on palpation of the quad tendon, patella, medial or lateral joint lines. There is no pain with passive range of motion of the knee. Motor and sensory function appear to be intact of the left lower extremity. Patient has good strength range of motion of the left ankle. A full extremity is warm and well-perfused. - Labs CBC & Chem 7: 03/14/20 06:35 03/14/20 06:35 Labs: Abnormal Lab Results - Last 24 Hours (Table) 03/14/20 03/14/20 Range/Units 06:35 06:35 WBC 17.8 H (3.8-10.6) k/uL Plt Count 466 H (150-450) k/uL Neutrophils # 15.3 H (1.3-7.7) k/uL BUN 36 H (9-20) mg/dL Creatinine 1.27 H (0.66-1.25) mg/dL Glucose 127 H (74-99) mg/dL Uric Acid 9.4 H (3.5-8.5) mg/dL Assessment and Plan Assessment: Left knee pain, improving. Plan: - Clinical findings were discussed with the patient. The patient has experienced significant improvement in symptoms since initiation of oral steroids. Patient may benefit oral steroids on discharge. - Patient may continue ROM of the left knee as tolerated. He may weight bear as tolerated on the left knee. - He is ok for discharge from an orthopedic standpoint. He may follow-up in the office with Dr. Duenas in 1 week if needed.
--- NOTE | 2020-03-15 08:47 | P.DS ---
Providers Date of admission: 03/11/20 10:26 Expected date of discharge: 03/14/20 Attending physician: Izabel Kauffman Consults: 03/11/20 10:30 Consult Physician Stat Consulting Provider: Norris Weaver Consult Reason/Comments: hypertensive urgency, edema Do you want consulting provider notified?: Yes 03/11/20 11:25 Consult Physician Stat Consulting Provider: Elmira Duenas Consult Reason/Comments: left knee pain, prepatellar effusion, bakers cyst Do you want consulting provider notified?: Yes Primary care physician: Genesis Hastings Hospital Course: Final diagnosis Hypertensive urgency Bilateral lower extremity swelling, improved Left knee pain and swelling on and off. Status post injury. X-ray showed no osseous abnormality. Possible acute gouty arthritis. 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 History of CVA/TIA Hypertension History of leukemia status post chemotherapy completed 6 months ago Previous history of smoking DVT prophylaxis Discharge disposition Patient is being discharged in a stable condition with guarded prognosis to home and will follow-up with Dr. Hastings in the outpatient setting upon discharge. Patient will need repeat labs in a few days to monitor creatinine. Total time taken is 35 minutes. History of present illness This is a 54-year-old male who was recently admitted with worsening bilateral lower extremity swelling and pain and was being closely monitored. Patient was also found to be hypertensive with a blood pressure systolic greater than 220 on admission. Patient was seen and evaluated by cardiology and changes were made to losartan. Patient will be taking 50 mg twice daily upon discharge. Patient also had some left knee swelling and discomfort status post injury and was seen and evaluated by orthopedic surgery recommending conservative management and no surgical intervention at this time. Patient was started on a steroid and had significant improvement in swelling and increase in mobility. Patient instructed to follow-up with orthopedic surgery as needed in the outpatient setting. Patient also instructed to follow-up with primary care provider in a few days for close monitoring of creatinine is slightly elevated at 1.27. Patient verbalized understanding and a prescription was provided for repeat labs. Patient also underwent a 2-D echo during hospitalization showing overall left ventricular systolic function is normal with an EF between 55 and 60%. Currently no reports of chest pain, shortness of breath, or palpitations. Patient is afebrile. No reports of nausea or vomiting and patient is tolerating diet. Patient will continue with Medrol Dosepak and elevate and ice the left knee while at rest. Patient will be discharged today. On exam vital signs are stable. Temp is 98.3F, 68 is the pulse, respirations are 18, blood pressure is 146/68, oxygen saturation is 95% on room air. Cardio S1, S2 are present. Respiratory shows clear to auscultation. Abdomen is soft and nontender. Nervous system shows no focal deficits. Please refer to medication reconciliation sheet for a list of medications. Patient Condition at Discharge: Stable Plan - Discharge Summary New Discharge Prescriptions: New Cyclobenzaprine [Flexeril] 10 mg PO TID PRN #60 tab PRN Reason: Spasms Losartan [Cozaar] 50 mg PO BID 30 Days #60 tab methylPREDNISolone Dose Pack [Medrol Dose Pack] 4 mg PO DIRECTED #21 package Continue Acetaminophen [Tylenol] 650 mg PO Q8H PRN PRN Reason: Pain Discontinued Naproxen Sodium [Aleve] 440 mg PO BID PRN PRN Reason: Pain Losartan Potassium [Cozaar] 50 mg PO DAILY Cephalexin [Keflex] 500 mg PO Q8H Atorvastatin Calcium [Lipitor] 80 mg PO DAILY Discharge Medication List Acetaminophen [Tylenol] 650 mg PO Q8H PRN 03/11/20 [History] Cyclobenzaprine [Flexeril] 10 mg PO TID PRN #60 tab 03/11/20 [Rx] Losartan [Cozaar] 50 mg PO BID 30 Days #60 tab 03/14/20 [Rx] methylPREDNISolone Dose Pack [Medrol Dose Pack] 4 mg PO DIRECTED #21 package 03/14/20 [Rx] Follow up Appointment(s)/Referral(s): Elmira Duenas DO [Doctor of Osteopathic Medicine] - 1 Week (Please call to schedule appointment on Saturday) Genesis Hastings MD [Primary Care Provider] - 1-2 days (office not answering. Please call to make appointment) Ambulatory/Diagnostic Orders: Basic Metabolic Panel [LAB.AMB] Time Frame: 2 Days, Location: None Selected Patient Instructions/Handouts: Hypertensive Crisis (DC) Activity/Diet/Wound Care/Special Instructions: Activity Limited until follow-up Continue current diet Follow-up with primary care provider Follow-up with pain management Repeat labs in 2-3 days to monitor kidney functions Monitor blood pressure and keep a diary of blood pressure readings for primary care follow-up Discharge Disposition: HOME SELF-CARE
--- NOTE | 2020-03-16 09:08 | CDI ---
Documentation Clarification Form Date: 03/16/2020 08:54:16 AM From: Xena Cali RN, CCDS Admit Date: 03/11/2020 10:26:00 AM Patient Name: Aryan Mustafa Visit Number: [id number] Discharge Date: 03/14/2020 05:46:00 PM ATTENTION: The Clinical Documentation Specialists (CDI) and [facility] Coding Staff appreciate your assistance in clarifying documentation. Please respond to the clarification below the line at the bottom and electronically sign. The CDI & [facility] Coding staff will review the response and follow-up if needed. Please note: Queries are made part of the Legal Health Record. If you have any questions, please contact the author of this message via ITS. Dr. Antonio Cohen Coronavirus Screening was preformed in upon admission. Results of Coronavirus testing must be documented in Medical record. Patient history/risk factors: CVA, pneumonia, HTN, former smoker Clinical Indicators: Patient presented to with c/o increased lower extremity swelling x 2 weeks with left knee pain and swelling. 03/11 CXR:"The cardiomediastinal silhouette, aorta, and pulmonary vasculature are within normal limits. Lungs and pleural spaces are clear. 03/11- 03/14 Labs: WBC 10.5/11/17.8, Neutrophils 8.2/7.2/15.3 03/11 Coronavirus (PCR) Negative 03/11 819 Vital Signs: Temp 98.4, Hr 82, RR 18, B/P 234/113, spo2 100% ra Treatment: Medrol dose pack In order to capture the severity of condition, please clarify if the above treatment/clinical indicators signify: COVID-19 ruled out Other, please specify (Last Form Revision: January 2020) COVID-19 ruled out MTDD
== END 2020-03-14 17:46 | disposition home or self-care (01) | DRG 305 ==
LOC: EC 08:18 → 4SSUR 10:26
PROVIDERS: ADMIT Internal Medicine; ATTEND Internal Medicine
DX: I16.0 Hypertensive urgency (principal); I11.9 Hypertensive heart disease without heart failure; R60.0 Localized edema; M10.9 Gout, unspecified; E78.5 Hyperlipidemia, unspecified; M71.22 Synovial cyst of popliteal space [Baker], left knee; S86.912A Strain of unspecified muscle(s) and tendon(s) at lower leg level, left leg, initial encounter; R01.1 Cardiac murmur, unspecified; M25.462 Effusion, left knee; M54.9 Dorsalgia, unspecified; Z11.59 Encounter for screening for other viral diseases; Z79.899 Other long term (current) drug therapy; Z92.21 Personal history of antineoplastic chemotherapy; Z87.891 Personal history of nicotine dependence; Z86.73 Personal history of transient ischemic attack (TIA), and cerebral infarction without residual deficits; Z85.6 Personal history of leukemia; Z88.1 Allergy status to other antibiotic agents; Z88.2 Allergy status to sulfonamides; Z87.01 Personal history of pneumonia (recurrent); Z82.49 Family history of ischemic heart disease and other diseases of the circulatory system
CPT/HCPCS: 36415; 71046; 80048; 80053; 80061; 83735; 83880; 84100; 84484; 84550; 85025; 85379; 87635; 93005; 93306; 93970; 96374; 96375; 99285

== ENCOUNTER 2021-10-31 13:14 | Emergency (ER) | payer OTHER, MEDICARE ==
[2021-10-31] MEDS ORDERED: ONDANSETRON 4 MG/2 ML VIAL IVP STA (15:28)
[2021-10-31] MEDS ORDERED: SODIUM CHLORIDE 0.9% 1,000 ML IV STA ×2 (15:28)
[2021-10-31] MEDS ORDERED: DEXAMETHASONE SOD PHOSPHATE 10 MG/ML 1 ML VIAL IV STA (15:30)
[2021-10-31 15:58] LABS: Basophils % (A) 0 %; Eosinophils % (A) 0 %; HCT 42.8 % (39.0-53.0); HGB 15.3 gm/dL (13.0-17.5); Lymphocytes # (A) 1.1 k/uL (1.0-4.8); Lymphocytes % (A) 21 %; MCH 30.6 pg (25.0-35.0); MCHC 35.7 g/dL (31.0-37.0); MCV 85.7 fL (80.0-100.0); Mean Platelet Volume 8.7; Monocytes # (A) 0.2 k/uL (0-1.0); Monocytes % (A) 4 %; Neutrophils # (A) 3.8 k/uL (1.3-7.7); Neutrophils % (A) 73 %; Platelet Count 174 k/uL (150-450); RBC 4.99 m/uL (4.30-5.90); RDW 14.1 % (11.5-15.5); WBC 5.2 k/uL (3.8-10.6)
--- NOTE | 2021-10-31 16:05 | XR ---
EXAMINATION TYPE: XR chest 1V portable DATE OF EXAM: 10/31/2021 COMPARISON: 03/11/2020 HISTORY: Cough TECHNIQUE: Single frontal view of the chest is obtained. FINDINGS: Bilateral areas of consolidation are seen. Heart size normal. No pleural effusion or pneum othorax. Mild hyperinflation correlate for COPD. IMPRESSION: Bilateral pneumonia.
[2021-10-31 16:07] LABS: Albumin 4.2 g/dL (3.5-5.0); Calcium 8.6 mg/dL (8.4-10.2); Phosphorus 3.5 mg/dL (2.5-4.5); Potassium 3.3 mmol/L (3.5-5.1); Total Protein 7.4 g/dL (6.3-8.2)
[2021-10-31] MEDS ORDERED: POTASSIUM CHLORIDE ER 20 MEQ TAB.ER PO STA (16:25)
--- NOTE | 2021-10-31 16:42 | ED ---
General Adult HPI - General Chief complaint: Nausea/Vomiting/Diarrhea Stated complaint: Covid+, weakness Time Seen by Provider: 10/31/21 15:17 Source: patient Mode of arrival: ambulatory Limitations: no limitations - History of Present Illness Initial comments: This 56-year-old male presents with COVID symptoms. He relates that he has felt fairly weak recently. He has had Covid symptoms for the last 11 days. He's had a slight cough but denies any shortness of breath. He is had occasional nausea but no vomiting. He's had decrease in appetite. He had fevers initially but none currently. His main complaint is that of weakness. He denies any chest pain, leg pain or leg swelling. His Covid test was +8 days ago. He denies any other complaints or modifying factors. - Related Data Home Medications Medication Instructions Recorded Confirmed Acetaminophen [Tylenol] 650 mg PO Q8H PRN 03/11/20 03/11/20 Previous Rx's Medication Instructions Recorded Cyclobenzaprine [Flexeril] 10 mg PO TID PRN #60 tab 03/11/20 Losartan [Cozaar] 50 mg PO BID 30 Days #60 tab 03/14/20 methylPREDNISolone Dose Pack 4 mg PO DIRECTED #21 package 03/14/20 [Medrol Dose Pack] Albuterol Sulfate [Albuterol 4 puff PO Q4H PRN #8.5 gm 10/31/21 Sulfate Hfa] Dexamethasone [Decadron] 6 mg PO DAILY #7 tablet 10/31/21 Ondansetron Odt [Zofran Odt] 8 mg PO Q8HR PRN #15 tab 10/31/21 Allergies Allergy/AdvReac Type Severity Reaction Status Date / Time cefazolin [From Ancef] Allergy Unknown Verified 10/31/21 14:45 sulfamethoxazole Allergy Rash/Hives Verified 10/31/21 14:45 [From Bactrim] trimethoprim [From Bactrim] Allergy Rash/Hives Verified 10/31/21 14:45 Review of Systems ROS Statement: Those systems with pertinent positive or pertinent negative responses have been documented in the HPI. ROS Other: All systems not noted in ROS Statement are negative. Past Medical History Past Medical History: CVA/TIA, Hypertension, Pneumonia Additional Past Medical History / Comment(s): GOUT,"HAS A PEICE OF IRON IN ONE OF HIS EYES, NOT SURE BUT THINKS IT MAY BE HIS LT EYE", MURMUR. STATED PT HAD" COW POX", Leukemia History of Any Multi-Drug Resistant Organisms: None Reported Past Surgical History: Hernia Repair, Orthopedic Surgery Additional Past Surgical History / Comment(s): RT KNEE ARTHROSCOPY AND CLEANED OUT KNEE,, RT SHOULDER HAS PIN IN IT. Past Anesthesia/Blood Transfusion Reactions: No Reported Reaction Past Psychological History: No Psychological Hx Reported Smoking Status: Former smoker Past Alcohol Use History: Rare Past Drug Use History: None Reported - Past Family History Mother Family Medical History: Hypertension Father Additional Family Medical History / Comment(s): DAD IS . HAD HX ULCERS General Exam - General Exam Comments Initial Comments: GENERAL: The patient is well nourished and well hydrated. VITAL SIGNS: Heart rate, blood pressure, respiratory rate reviewed as recorded in nurse's notes. EYES: Pupils are round and reactive. Extraocular movements are intact. No conjunctival / lid redness or swelling. ENT: No external evidence of injury, swelling, or ecchymosis. Airway is patent. Throat is clear. NECK: Nontender. No swelling or evidence of injury. No subcutaneous emphysema. Trachea is midline. No thyroid mass. HEART: Regular rate and rhythm. Good peripheral pulses. LUNGS/CHEST: Breath sounds clear and equal bilaterally. No rales, rhonchi, or wheezes. No ecchymosis, subcutaneous emphysema, or tenderness. ABDOMEN: Abdomen soft without tenderness. No palpable masses or organomegaly. No peritoneal signs. No abdominal wall swelling or ecchymosis. EXTREMITIES: No extremity tenderness. Normal muscle tone and function. No thoracolumbar tenderness. NEUROLOGIC: Sensation is grossly intact. Cranial nerve exam reveals face is symmetrical, tongue is midline, speech is clear. SKIN: No abrasions or ecchymosis is noted. No induration or masses noted. PSYCHIATRIC: Alert and oriented. Appropriate behavior and judgment. Limitations: no limitations Course Vital Signs 10/31/21 10/31/21 14:40 15:03 Temperature 98.1 F Pulse Rate 60 64 Respiratory 18 Rate Blood Pressure 121/73 127/70 O2 Sat by Pulse 97 96 Oximetry Medical Decision Making - Medical Decision Making The patient was seen and examined. All diagnostics are reviewed. His sodium, chloride, and potassium came back low. He is given 2 L of IV fluids. He is also given Zofran and Decadron intravenously. He is feeling slightly improved on recheck. His chest x-ray shows evidence of overt pneumonia bilaterally. His oxygenation is been doing well. It is felt as though he is stable for discharge. He'll be prescribed Decadron, albuterol HFA, and Zofran. Return parameters are discussed. Oral fluid hydration is strongly encouraged. Close follow-up recommended. - Lab Data Result diagrams: 10/31/21 15:44 10/31/21 15:44 Lab Results 10/31/21 10/31/21 Range/Units 15:44 15:44 WBC 5.2 (3.8-10.6) k/uL RBC 4.99 (4.30-5.90) m/uL Hgb 15.3 (13.0-17.5) gm/dL Hct 42.8 (39.0-53.0) % MCV 85.7 (80.0-100.0) fL MCH 30.6 (25.0-35.0) pg MCHC 35.7 (31.0-37.0) g/dL RDW 14.1 (11.5-15.5) % Plt Count 174 (150-450) k/uL MPV 8.7 Neutrophils % 73 % Lymphocytes % 21 % Monocytes % 4 % Eosinophils % 0 % Basophils % 0 % Neutrophils # 3.8 (1.3-7.7) k/uL Lymphocytes # 1.1 (1.0-4.8) k/uL Monocytes # 0.2 (0-1.0) k/uL Eosinophils # 0.0 (0-0.7) k/uL Basophils # 0.0 (0-0.2) k/uL Sodium 126 L (137-145) mmol/L Potassium 3.3 L (3.5-5.1) mmol/L Chloride 88 L (98-107) mmol/L Carbon Dioxide 23 (22-30) mmol/L Anion Gap 15 mmol/L BUN 32 H (9-20) mg/dL Creatinine 1.41 H (0.66-1.25) mg/dL Est GFR (CKD-EPI)AfAm 65 (>60 ml/min/1.73 sqM) Est GFR (CKD-EPI)NonAf 56 (>60 ml/min/1.73 sqM) Glucose 106 H (74-99) mg/dL Calcium 8.6 (8.4-10.2) mg/dL Phosphorus 3.5 (2.5-4.5) mg/dL Magnesium 2.0 (1.6-2.3) mg/dL Total Bilirubin 1.0 (0.2-1.3) mg/dL AST 66 H (17-59) U/L ALT 21 (4-49) U/L Alkaline Phosphatase 73 (38-126) U/L Total Protein 7.4 (6.3-8.2) g/dL Albumin 4.2 (3.5-5.0) g/dL Disposition Clinical Impression: COVID, Pneumonia due to COVID-19 virus, Hyponatremia, Hypochloremia, Hypokalemia, Weakness, Cough, Nausea Disposition: HOME SELF-CARE Condition: Good Instructions (If sedation given, give patient instructions): Coronavirus Disease 2019 (COVID-19), Viral Pneumonia (ED), Weakness (ED) Prescriptions: Albuterol Sulfate [Albuterol Sulfate Hfa] 4 puff PO Q4H PRN #8.5 gm PRN Reason: Cough Dexamethasone [Decadron] 6 mg PO DAILY #7 tablet Ondansetron Odt [Zofran Odt] 8 mg PO Q8HR PRN #15 tab PRN Reason: Nausea Is patient prescribed a controlled substance at d/c from ED?: No Referrals: Genesis Hastings MD [Primary Care Provider] - 1-2 days Time of Disposition: 16:53
[2021-10-31 17:26] VITALS: BP 143/81; PULSE 66; RESP 16; TEMP 99.6
== END 2021-10-31 17:23 | disposition home or self-care (01) ==
LOC: EC 13:14
DX: U07.1 COVID-19 (principal); J12.82 Pneumonia due to coronavirus disease 2019; E87.1 Hypo-osmolality and hyponatremia; E87.8 Other disorders of electrolyte and fluid balance, not elsewhere classified; E87.6 Hypokalemia; I10 Essential (primary) hypertension; Z86.73 Personal history of transient ischemic attack (TIA), and cerebral infarction without residual deficits; Z88.1 Allergy status to other antibiotic agents; Z87.891 Personal history of nicotine dependence; Z88.2 Allergy status to sulfonamides
CPT/HCPCS: 36415; 80053; 83735; 84100; 85025; 71045; 99285; 96374; 96375; 96361; J1100; J2405